=== PATIENT | female | born 1965 | race Caucasian/White ===

== ENCOUNTER → 2017-08-17 | Outpatient (CLI) | payer SELFPAY ==
[~2017-08-17] MED LIST: ALBU8.5H IH; AMPH30TA10 PO; IOPAMIDOL 76% 75 ML INFUS BTL 75 ML ONE; LOR5/325 PO
--- NOTE | 2017-08-24 10:42 | RADIOLOGY IMAGING REPORT ---
FACILITY: [facility] PATIENT NAME: Triny Olvera : 1965 MR: [id number] V: [id number] EXAM DATE: ORDERING PHYSICIAN: DAVID CABEZAS TECHNOLOGIST: Location: [facility] Patient: Triny Olvera : 1965 Visit/Account:[id number] Date of Sevice: 08/17/2017 CHEST W CONTRAST History: Follow-up pulmonary nodule on outside CT TECHNIQUE: Contiguous axial images were performed through the chest to the level of the adrenal gla nds following the administration of IV contrast. Coronal and sagittal reformatting was also perform ed. Dose Lowering Technique One of the following dose optimization techniques was utilized in the performance of this exam: Autom ated exposure control; adjustment of the mA and/or kV according to the patient's size; or use of an i terative reconstruction technique. Specific details can be referenced in the facility's radiology C T exam operational policy. Contrast: 75 mL Isovue-370 COMPARISON STUDIES: May 26, 2017. Lungs / Pleura: There is biapical pleural thickening and adjacent fibrotic stranding that appears s imilar to the prior study Previous dense airspace consolidation in the anterior lingula has almost completely resolved. There is only a subtle groundglass opacity in this location which likely represents area of scarring. The small patchy area of airspace consolidation in the anterior inferior right upper lobe has also almost completely resolved with only a subtle groundglass opacity now seen in location also likely scarring . There is no evidence of new pulmonary consolidation or nodules. No evidence of pleural effusions. Mediastinum/nodes: negative. Heart and vessels: negative. Musculoskeletal / Body wall: Moderate spondylotic changes in the visualized portion of the lower ce rvical spine there are bilateral breast implants in place Upper abdomen: There is thickening of both adrenal glands and a 2 x 1.8 cm hypoattenuating mass in the left adrenal gland IMPRESSION: Previous dense airspace consolidation in the anterior lingula and small patchy area of airspace conso lidation anterior inferior right upper lobe have almost completely resolved. Only subtle groundglass opacities are now seen in these locations which likely represent scarring. No evidence of new pulmo nary consolidation or nodules 2 x 1.8 cm hypoattenuating mass in the left adrenal gland. This could be further evaluated with dedi cated CT or MR of the adrenal glands. Report Dictated By: Rocio Zuniga MD at 08/24/2017 10:27 AM Report E-Signed By: Rocio Zuniga MD at 08/24/2017 10:38 AM WSN:[id number]
== END ==
LOC: CT 00:25
PROVIDERS: ATTEND Nurse Practitioner Family
DX: D35.00 Benign neoplasm of unspecified adrenal gland (principal); R91.8 Other nonspecific abnormal finding of lung field
CPT/HCPCS: 71260; Q9967

== ENCOUNTER → 2017-09-06 | Outpatient (CLI) | payer SELFPAY ==
[~2017-09-06] MED LIST changes: -IOPAMIDOL 76% 75 ML INFUS BTL 75 ML ONE
--- NOTE | 2017-09-06 13:11 | RADIOLOGY IMAGING REPORT ---
FACILITY: [facility] PATIENT NAME: Triny Olvera : 1965 MR: [id number] V: [id number] EXAM DATE: ORDERING PHYSICIAN: DAVID CABEZAS TECHNOLOGIST: Location: [facility] Patient: Triny Olvera : 1965 Visit/Account:[id number] Date of Sevice: 09/06/2017 EXAMINATION: MRI abdomen without IV contrast 09/06/2017 9:00 AM HISTORY: Left adrenal mass found on prior CT TECHNIQUE: Multisequence multiplanar images were obtained without intravenous contrast administration . COMPARISON STUDIES: CT chest 08/17/2017 FINDINGS: Liver / biliary: Gallstones in the gallbladder. Liver is negative. Pancreas: negative Spleen: negative Adrenal glands: 1.6 cm left adrenal nodule has clear loss of signal on out of phase imaging consisten t with a fat-containing adrenal adenoma. Right is negative. Kidneys / retroperitoneum: negative Bowel / peritoneum / mesenteries: negative Vessels: negative Musculoskeletal / Body wall: Partially imaged breast implants. Lymph node assessment: negative Lower chest: negative IMPRESSION: 1. 1.6 cm left adrenal nodule has signal features consistent with a benign adenoma. 2. Cholecystolithiasis. Report Dictated By: Andrew Marti MD at 09/06/2017 12:58 PM Report E-Signed By: Andrew Marti MD at 09/06/2017 1:06 PM WSN:[id number]
== END ==
LOC: MRI 01:37
PROVIDERS: ATTEND Nurse Practitioner Family
DX: K80.20 Calculus of gallbladder without cholecystitis without obstruction (principal); E27.8 Other specified disorders of adrenal gland; Z98.82 Breast implant status
CPT/HCPCS: 74181

== ENCOUNTER 2018-01-12 17:16 | Emergency (ER) | payer SELFPAY ==
[2018-01-12] MEDS ORDERED: NS(*) 0.9% 1000 ML BAG 1,000 ML IV ONE (17:30)
[2018-01-12] MEDS ORDERED: ASPIRIN 81 MG CHEW PO ONE (17:30)
--- NOTE | 2018-01-12 17:34 | EKG ---
FACILITY: [facility] [place] PATIENT NAME: COURT DOUGLASS : [id number] MR: [id number] V: [id number] EXAM DATE: ORDERING PHYSICIAN: JOSE MULLEN TECHNOLOGIST: CORNELL Test Reason : CP Blood Pressure : / mmHG Vent. Rate : 075 BPM Atrial Rate : 075 BPM P-R Int : 112 ms QRS Dur : 066 ms QT Int : 444 ms P-R-T Axes : 073 091 081 degrees QTc Int : 495 ms Normal sinus rhythm Rightward axis Prolonged QT Abnormal ECG When compared with ECG of 14-JAN-2017 16:20, No significant change was found Confirmed by Alfredo Pretty ([id number]) on 01/12/2018 11:01:13 PM Referred By: ABHISHEK Confirmed By:Alfredo Arredondo
[2018-01-12 17:45] LABS: PLATELET COUNT, AUTOMATED 226 K/uL (150-450)
--- NOTE | 2018-01-12 17:45 | ER Report ---
History and Physical Time Seen By MD: 17:45 Hx. of Stated Complaint: PATIENT REPORTS LEFT SIDED CHEST PAIN THAT STARTED 2 WEEKS AGO HPI/ROS CHIEF COMPLAINT: Chest pain HISTORY OF PRESENT ILLNESS: This is a 52-year-old female who presents to the emergency department for left anterior chest pain. Patient states that over the last couple weeks she's had increased left-sided chest pain. Now it seems to be very sharp and intense, movement does seem to increase discomfort. The pain does not radiate to her back it does however radiate up to her left chest. The chest pain does cause increased shortness of breath during its cute and intense episodes. She has been nausea no vomiting. No diarrhea. No recent injuries. No fevers or chills. No rashes. She does have a history of smoking. REVIEW OF SYSTEMS: Constitutional: No fever, no chills. Eyes: No discharge. ENT: No sore throat. Cardiovascular: As above. Respiratory: As above. Gastrointestinal: No abdominal pain, no vomiting. Genitourinary: No hematuria. Musculoskeletal: No back pain. Skin: No rashes. Neurological: No headache. Allergies: Coded Allergies: No Known Drug Allergies (Unverified , 01/14/17) Home Meds Active Scripts Ondansetron Hcl (ZOFRAN) 4 Mg Tablet, 4 MG PO Q4-6H PRN for prn, #20 TAB 0 Refills Prov:JOSE MULLEN [facility] 01/12/18 Hydrocodone Bit/Acetaminophen (HYDROCODON-ACETAMINOPHEN 5-325) 1 Each Tablet, 1 EACH PO Q4-6H PRN for PAIN, #10 TAB 0 Refills Prov:JOSE MULLEN [facility] 01/12/18 Doxycycline Hyclate (DOXYCYCLINE HYCLATE) 100 Mg Tablet, 100 MG PO BID for 10 Days, #20 TAB 0 Refills Prov:JOSE MULLEN [facility] 01/12/18 Amoxicillin/Pot Clav 875-125 Mg Tab (AUGMENTIN 875-125 TABLET) 1 Each Tablet, 1 TAB PO Q12H for 10 Days, #20 TAB 0 Refills Prov:JOSE MULLEN [facility] 01/12/18 Hydrocodone Bit/Acetaminophen (HYDROCODON-ACETAMINOPHEN 5-325) 1 Each Tablet, 1 EACH PO Q4H PRN for PAIN, #8 TAB 0 Refills Prov:MINGO NESS MD 02/02/17 Albuterol Sulfate 90 Mcg/Act (PROAIR HFA 90 MCG/ACT) 8.5 Gm Hfa.aer.ad, 1-2 PUFF IH Q4-6H, #1 INHALER Prov:ISAMARMARIJA Silva PA-C 01/14/17 Reported Medications Amphet Asp/Amphet/D-Amphet (ADDERALL 30 MG TABLET) 30 Mg Tablet, 30 MG PO BID 01/14/17 Past Medical/Surgical History The patient has a past medical and surgical history of "dark spot on her lungs, increased shortness breath with walking, ADHD, appendectomy, hysterectomy, breast augmentation. Reviewed Nurses Notes: Yes Constitutional Vital Sign - Last 24 Hours 01/12/18 01/12/18 01/12/18 01/12/18 17:21 17:23 18:16 18:46 Temp 98.6 Pulse 75 63 64 Resp 20 14 12 B/P (MAP) 117/69 (85) 117/69 Pulse Ox 95 96 95 O2 Delivery Room Air 01/12/18 01/12/18 01/12/18 01/12/18 18:51 19:21 19:51 20:21 Pulse ??? 63 62 63 Resp 15 16 27 Pulse Ox 93 93 95 01/12/18 20:33 B/P (MAP) 115/93 (100) Physical Exam General Appearance: The patient is alert, has no immediate need for airway protection and no signs of toxicity. Eyes: Pupils equal and round no pallor or injection. ENT, Mouth: Mucous membranes are moist. Respiratory: There are no retractions, lungs are clear to auscultation. Cardiovascular: Regular rate and rhythm. Gastrointestinal: Abdomen is soft and non tender, no masses, bowel sounds normal. Neurological: Alert and oriented 4. Moving all extremities. Following all commands. No focal neuro deficits. Skin: Warm and dry, no rashes. Musculoskeletal: Neck is supple non tender. Extremities left anterior lower chest painful with palpation, no crepitus or obvious deformities. No bruising identified. DIFFERENTIAL DIAGNOSIS: After history and physical exam differential diagnosis was considered for chest pain including but not limited to myocardial ischemia, pericarditis pulmonary embolus, chest wall pain, pleural inflammation and pulmonary infectious causes. Medical Decision Making Data Points Result Diagram: 01/12/18 1736 01/12/18 1736 Laboratory Hematology Test 01/12/18 17:36 Red Blood Count 4.96 M/uL (4.17-5.56) Mean Corpuscular Volume 87.1 fL (80.0-96.0) Mean Corpuscular Hemoglobin 29.8 pg (26.0-33.0) Mean Corpuscular Hemoglobin Concent 34.2 g/dL (32.0-36.0) Red Cell Distribution Width 13.9 % (11.5-14.5) Mean Platelet Volume 8.0 fL (7.2-11.1) Neutrophils (%) (Auto) 79.7 % (39.4-72.5) Lymphocytes (%) (Auto) 10.5 % (17.6-49.6) Monocytes (%) (Auto) 6.8 % (4.1-12.4) Eosinophils (%) (Auto) 0.3 % (0.4-6.7) Basophils (%) (Auto) 2.7 % (0.3-1.4) Nucleated RBC Relative Count (auto) 0.1 /100WBC Neutrophils # (Auto) 5.2 K/uL (2.0-7.4) Lymphocytes # (Auto) 0.7 K/uL (1.3-3.6) Monocytes # (Auto) 0.4 K/uL (0.3-1.0) Eosinophils # (Auto) 0.0 K/uL (0.0-0.5) Basophils # (Auto) 0.2 K/uL (0.0-0.1) Nucleated RBC Absolute Count (auto) 0.00 K/uL D-Dimer Quantitative (PE/DVT) 1.26 ug/ml (0-0.50) Sodium Level 137 mmol/L (137-145) Potassium Level 3.7 mmol/L (3.5-5.0) Chloride Level 106 mmol/L (98-107) Carbon Dioxide Level 24 mmol/L (22-31) Blood Urea Nitrogen 18 mg/dl (7-18) Creatinine 0.70 mg/dl (0.52-1.04) Glomerular Filtration Rate Calc > 60.0 Random Glucose 66 mg/dl (75-110) Calcium Level 8.4 mg/dl (8.4-10.2) Total Bilirubin 0.7 mg/dl (0.2-1.3) Aspartate Amino Transf (AST/SGOT) 60 U/L (0-35) Alanine Aminotransferase (ALT/SGPT) 52 U/L (0-56) Alkaline Phosphatase 90 U/L (0-126) Troponin I < 0.012 ng/ml Total Protein 6.6 g/dl (6.3-8.2) Albumin 3.6 g/dl (3.5-5.0) Chemistry Test 01/12/18 17:36 White Blood Count 6.5 k/uL (4.5-11.0) Red Blood Count 4.96 M/uL (4.17-5.56) Hemoglobin 14.8 g/dL (12.0-16.0) Hematocrit 43.2 % (34.0-47.0) Mean Corpuscular Volume 87.1 fL (80.0-96.0) Mean Corpuscular Hemoglobin 29.8 pg (26.0-33.0) Mean Corpuscular Hemoglobin Concent 34.2 g/dL (32.0-36.0) Red Cell Distribution Width 13.9 % (11.5-14.5) Platelet Count 226 K/uL (150-450) Mean Platelet Volume 8.0 fL (7.2-11.1) Neutrophils (%) (Auto) 79.7 % (39.4-72.5) Lymphocytes (%) (Auto) 10.5 % (17.6-49.6) Monocytes (%) (Auto) 6.8 % (4.1-12.4) Eosinophils (%) (Auto) 0.3 % (0.4-6.7) Basophils (%) (Auto) 2.7 % (0.3-1.4) Nucleated RBC Relative Count (auto) 0.1 /100WBC Neutrophils # (Auto) 5.2 K/uL (2.0-7.4) Lymphocytes # (Auto) 0.7 K/uL (1.3-3.6) Monocytes # (Auto) 0.4 K/uL (0.3-1.0) Eosinophils # (Auto) 0.0 K/uL (0.0-0.5) Basophils # (Auto) 0.2 K/uL (0.0-0.1) Nucleated RBC Absolute Count (auto) 0.00 K/uL D-Dimer Quantitative (PE/DVT) 1.26 ug/ml (0-0.50) Glomerular Filtration Rate Calc > 60.0 Calcium Level 8.4 mg/dl (8.4-10.2) Total Bilirubin 0.7 mg/dl (0.2-1.3) Aspartate Amino Transf (AST/SGOT) 60 U/L (0-35) Alanine Aminotransferase (ALT/SGPT) 52 U/L (0-56) Alkaline Phosphatase 90 U/L (0-126) Troponin I < 0.012 ng/ml Total Protein 6.6 g/dl (6.3-8.2) Albumin 3.6 g/dl (3.5-5.0) Coagulation Test 01/12/18 17:36 D-Dimer Quantitative (PE/DVT) 1.26 ug/ml EKG/Imaging EKG Interpretation 12 lead EKG: Time of EKG 1726. Rhythm: Normal sinus rhythm, ventricular rate 75 bpm. Hope: Right axis QRS: normal ST segments: No ST depression or elevation identified. Prolonged QT. Imaging Examination: CHEST PA AND LAT Comparison: 08/17/2017. History: Chest pain. Findings: Pulmonary hyperexpansion. No new or enlarging consolidation or nodule. No pneumothorax, edema, or effusion. Cardiac and hilar contour size is within normal limits. Osseous structures are intact. IMPRESSION: Chronic pulmonary hyperexpansion. No evidence of acute cardiopulmonary disease. Report Dictated By: Paulo Argueta MD at 01/12/2018 6:07 PM Report E-Signed By: Paulo Argueta MD at 01/12/2018 6:09 PM WSN:[id number] CTA CHEST WW/O CNTR (PULM ANG) HISTORY: Chest pain, elevated D-dimer. ADDITIONAL HISTORY: None. TECHNIQUE: CTA chest with intravenous contrast attention to pulmonary arteries. Sagittal, coronal and slab 3D MIP coronal reconstructed images were also created for further evaluation and interpretation. One of the following dose optimization techniques was utilized in the performance of this exam: Automated exposure control; adjustment of the mA and/or kV according to the patient's size; or use of an iterative reconstruction technique. Specific details can be referenced in the facility's radiology CT exam operational policy. CONTRAST: 75 mL Isovue-370 IV COMPARISON: 08/17/2017 FINDINGS: Heart/vessels: Pulmonary arterial tree well opacified. No evidence of pulmonary embolism. Mediastinum: Negative. Lymph nodes: No adenopathy. Lungs/pleura: Mild and benign-appearing biapical pleural parenchymal pulmonary scarring. New from prior exam, peribronchial tree-in-bud type infiltrate basilar segments left lower lobe with central consolidation or atelectasis and several s mall foci of luminal debris. Stable noncalcified 3 mm nodule central right apex (). Visualized upper abdomen: Too small to characterize low attenuating lateral segment left hepatic lesion, likely cyst. Diverticula visualized splenic flexure colon. Bones/soft tissues: Bilateral breast implants. Minimal disc degenerative changes thoracic spine. IMPRESSION: 1. Technically adequate exam without evidence of pulmonary embolism. 2. New peribronchial tree-in-bud type infiltrate basilar segments left lower lobe with central consolidation or atelectasis and several small foci of luminal debris. Findings are most concerning for aspiration/pneumonia, however, given the irregular nature of this consolidation, 3-month chest CT follow-up is recommended to reassess. 3. Stable 3 mm noncalcified right apical pulmonary nodule. If patient has a history of smoking or other known risk factors, 6-[address] follow-up is considered optional according to [employer] guidelines. Report Dictated By: Tim Mckeon MD at 01/12/2018 7:18 PM Report E-Signed By: Tim Mckeon MD at 01/12/2018 7:28 PM WSN:[id number] ED Course/Re-evaluation Clinical Indication for ER IV: Hydration, IV Access ED Course The patient was admitted to room. A history and physical were obtained. Differential diagnoses were considered. An IV was started. A CBC, CMP were obtained.two-view chest x-ray was negative for any acute cardiopulmonary pro cess. Negative troponin. Lab studies showing no white count, there is a mild left shift, positive d-dimer at 1.26. A CT of the chest was negative for PE however it does show an aspiration pneumonia. I did review the results with the patient. The patient states that she does remember having a severe coughing episode couple of weeks ago where she felt that she did swallow something into her lungs. As this is likely an aspiration pneumonia, I did start patient on Augmentin as well as doxycycline. I did recommend that the patient follows up with her primary care provider within one week for reevaluation. Patient was given a 1 L normal saline bolus. 324 mg of aspirin, 4 mg IV Zofran, 4 mg IV morp lizeth, 50 mg IV Toradol, 1 by mouth Lortab, one take-home pack of Lortab. Patient states feeling much better at the time of discharge. I did send the prescriptions to the patient's pharmacy, I did send a prescription for hydrocodone as well as Zofran. EKG showing normal sinus rhythm. Decision to Disposition Date: Jan 12, 2018 Decision to Disposition Time: 20:25 Depart Departure Latest Vital Signs Vital Signs Date Time Temp Pulse Resp B/P (MAP) Pulse Ox O2 Delivery O2 Flow Rate FiO2 01/12/18 20:33 115/93 (100) 01/12/18 20:21 63 27 95 01/12/18 17:23 98.6 Room Air Impression: Primary Impression: Aspiration pneumonia Condition: Improved Disposition: HOME OR SELF-CARE New Scripts Ondansetron Hcl (ZOFRAN) 4 Mg Tablet 4 MG PO Q4-6H PRN for prn, #20 TAB 0 Refills Prov: JOSE MULLEN [facility] 01/12/18 Hydrocodone Bit/Acetaminophen (HYDROCODON-ACETAMINOPHEN 5-325) 1 Each Tablet 1 EACH PO Q4-6H PRN for PAIN, #10 TAB 0 Refills Prov: JOSE MULLEN [facility] 01/12/18 Doxycycline Hyclate (DOXYCYCLINE HYCLATE) 100 Mg Tablet 100 MG PO BID for 10 Days, #20 TAB 0 Refills Prov: JOSE MULLEN [facility] 01/12/18 Amoxicillin/Pot Clav 875-125 Mg Tab (AUGMENTIN 875-125 TABLET) 1 Each Tablet 1 TAB PO Q12H for 10 Days, #20 TAB 0 Refills Prov: JOSE MULLEN [facility] 01/12/18 Patient Instructions: Aspiration Pneumonia (DC) Additional Instructions: The CT of the chest does indicate that you have an aspiration pneumonia. Your studies look good tonight therefore I don't see any reason why we wouldn't be able to send him home however I am going to send her home on 2 different antibiotics. You can take ibuprofen or Tylenol as needed for pain. Take the hydrocodone for severe pain, no driving or operating machinery while taking the hydrocodone. Due be aware that this can cause constipation as well so increase her dietary fiber and water intake. Take the Zofran as needed for nausea and vomiting. Get plenty of rest. Return to the emergency department for any other concerns or worsening symptoms. Follow-up with your primary care provider within one week for reevaluation of your symptoms. Problem Qualifiers Primary Impression: Aspiration pneumonia Aspiration pneumonia type: unspecified Laterality: left Lung location: lower lobe of lung Qualified Codes: J69.0 - Pneumonitis due to inhalation of food and vomit JOSE MULLEN [facility] Jan 12, 2018 17:45
--- NOTE | 2018-01-12 18:12 | RADIOLOGY IMAGING REPORT ---
FACILITY: [facility] [place] PATIENT NAME: Triny Olvera : 1965 MR: [id number] V: [id number] EXAM DATE: ORDERING PHYSICIAN: JOSE MULLEN TECHNOLOGIST: Location: [facility] [place] Patient: Triny Olvera : 1965 Visit/Account:[id number] Date of Sevice: 01/12/2018 Examination: CHEST PA AND LAT Comparison: 08/17/2017. History: Chest pain. Findings: Pulmonary hyperexpansion. No new or enlarging consolidation or nodule. No pneumothorax, casimiro ma, or effusion. Cardiac and hilar contour size is within normal limits. Osseous structures are intac t. IMPRESSION: Chronic pulmonary hyperexpansion. No evidence of acute cardiopulmonary disease. Report Dictated By: Paulo Argueta MD at 01/12/2018 6:07 PM Report E-Signed By: Paulo Argueta MD at 01/12/2018 6:09 PM WSN:[id number]
[2018-01-12] MEDS ORDERED: MORPHINE 4 MG/ML SDV IVP ONE (18:35)
[2018-01-12] MEDS ORDERED: ONDANSETRON 4 MG/2 ML VIAL IVP ONE (18:35)
[2018-01-12] MEDS ORDERED: NS(*) 0.9% 50 ML BAG 50 ML ONE (18:47)
[2018-01-12] MEDS ORDERED: IOPAMIDOL 76% 75 ML INFUS BTL 75 ML ONE (18:47)
--- NOTE | 2018-01-12 19:32 | RADIOLOGY IMAGING REPORT ---
FACILITY: [facility] [place] PATIENT NAME: Triny Olvera : 1965 MR: [id number] V: [id number] EXAM DATE: ORDERING PHYSICIAN: JOSE MULLEN TECHNOLOGIST: Location: [facility] [place] Patient: Triny Olvera : 1965 Visit/Account:[id number] Date of Sevice: 01/12/2018 CTA CHEST WW/O CNTR (PULM ANG) HISTORY: Chest pain, elevated D-dimer. ADDITIONAL HISTORY: None. TECHNIQUE: CTA chest with intravenous contrast attention to pulmonary arteries. Sagittal, coronal a nd slab 3D MIP coronal reconstructed images were also created for further evaluation and interpretati on. One of the following dose optimization techniques was utilized in the performance of this exam: Autom ated exposure control; adjustment of the mA and/or kV according to the patient's size; or use of an i terative reconstruction technique. Specific details can be referenced in the facility's radiology C T exam operational policy. CONTRAST: 75 mL Isovue-370 IV COMPARISON: 08/17/2017 FINDINGS: Heart/vessels: Pulmonary arterial tree well opacified. No evidence of pulmonary embolism. Mediastinum: Negative. Lymph nodes: No adenopathy. Lungs/pleura: Mild and benign-appearing biapical pleural parenchymal pulmonary scarring. New from pr ior exam, peribronchial tree-in-bud type infiltrate basilar segments left lower lobe with central con solidation or atelectasis and several small foci of luminal debris. Stable noncalcified 3 mm nodule c entral right apex (). Visualized upper abdomen: Too small to characterize low attenuating lateral segment left hepatic les ion, likely cyst. Diverticula visualized splenic flexure colon. Bones/soft tissues: Bilateral breast implants. Minimal disc degenerative changes thoracic spine. IMPRESSION: 1. Technically adequate exam without evidence of pulmonary embolism. 2. New peribronchial tree-in-bud type infiltrate basilar segments left lower lobe with central consol idation or atelectasis and several small foci of luminal debris. Findings are most concerning for asp iration/pneumonia, however, given the irregular nature of this consolidation, 3-month chest CT follow -up is recommended to reassess. 3. Stable 3 mm noncalcified right apical pulmonary nodule. If patient has a history of smoking or oth er known risk factors, 6-[address] follow-up is considered optional according to [employer] guidelines. Report Dictated By: Tim Mckeon MD at 01/12/2018 7:18 PM Report E-Signed By: Tim Mckeon MD at 01/12/2018 7:28 PM WSN:[id number]
[2018-01-12] MEDS ORDERED: AMOX-559 PO (20:23)
[2018-01-12] MEDS ORDERED: ONDA4TAB97 PO (20:23)
[2018-01-12] MEDS ORDERED: HYDR-385 PO (20:23)
[2018-01-12] MEDS ORDERED: DOXY-179 PO (20:23)
[2018-01-12] MEDS ORDERED: APAP/HYDROCODONE 325/5 TAB PO ONE (20:30)
[2018-01-12] MEDS ORDERED: KETOROLAC 15 MG/ML VIAL IVP ONE (20:30)
[2018-01-12 20:33] VITALS: BP 115/93
[2018-01-12] MEDS ORDERED: ACET/HYDROC 5/325MG TH ER ONLY 2 TAB/BOTTLE PO ONE (20:50)
== END 2018-01-12 20:49 | disposition home or self-care (01) ==
LOC: ER 17:34
DX: J69.0 Pneumonitis due to inhalation of food and vomit (principal); Z87.891 Personal history of nicotine dependence
CPT/HCPCS: 71046; 71275; 84484; 85025; 85379; 93005; 96361; 96374; 96375; 99285; J1885; J2270; J2405; J7030; J7050; Q9967; 82040; 82247; 82310; 82374; 82435; 82565; 82947; 84075; 84132; 84155; 84295; 84450; 84460; 84520

== ENCOUNTER 2018-05-22 19:01 | Emergency (ER) | payer SELFPAY ==
[~2018-05-22 19:01] MED LIST changes: +AMOX-559 PO; +DOXY-179 PO; +HYDR-385 PO; +ONDA4TAB97 PO
[2018-05-22 19:26] VITALS: BP 156/80
--- NOTE | 2018-05-22 19:51 | ER Report ---
History and Physical Time Seen By MD: 19:38 Hx. of Stated Complaint: PATIENT REPORTS NECK PAIN AND STATES SHE "FEELS LIKE HER SPINE IS TWISTING TO THE LEFT" REPORTS FALLING DOWN STAIRS A YEAR AGO AND NECK HAS BOTHERING HER SINCE. HPI/ROS CHIEF COMPLAINT: Neck pain HISTORY OF PRESENT ILLNESS: 53 year old female presents to ED with severe neck pain. Patient reports pain is located at base of skull that runs down her spine to her sacrum, and pain radiates to her right hip and jaw. Reports pain does not run down into her legs. Reports pain feels as if her spine is "twisting" and will periodically cause her jaw to lock and prevent her from taking a deep breath. She can feel the "twisting" all the way down her spine. Reports the "twisting" sensation occurs multiple times a minute. Reports pain is sharp, constant, and 10 out of 10. Patient has tried tylenol, ibuprofen, and advil all of which have not touched her pain. Patient reports she had a fall 1 year ago in which the pain started. Patient reports she fell down 5-10 stairs and fell backwards hitting her spine on the steps. Patient never followed up after the fall. Patient's pain was mild initially after the fall and has progressively gotten worse as time has gone on. Patient reports pain has significantly increased the past two weeks. REVIEW OF SYSTEMS: HENT: Denies headache. Reports jaw pain and tightness that occurs periodically. Respiratory: No cough, no dyspnea. Cardiovascular: No chest pain, no palpitations. Gastrointestinal: No vomiting, no abdominal pain. Musculoskeletal: Reports cervical pain that runs down her spine and radiates to her right hip and jaw. Allergies: Coded Allergies: No Known Drug Allergies (Unverified , 05/22/18) Home Meds Active Scripts Oxycodone Hcl/Acetaminophen (PERCOCET 5-325 MG TABLET) 1 Each Tablet, 1 EACH PO Q4-6H PRN for PAIN, #12 TAB Prov:DASH GUAJARDO [facility] 05/22/18 Cyclobenzaprine Hcl (CYCLOBENZAPRINE HCL) 10 Mg Tablet, 10 MG PO TID PRN for MUSCLE SPASMS, #15 TAB Prov:DASH GUAJARDO [facility] 05/22/18 Discontinued Reported Medications Amphet Asp/Amphet/D-Amphet (ADDERALL 30 MG TABLET) 30 Mg Tablet, 30 MG PO BID 01/14/17 Discontinued Scripts Ondansetron Hcl (ZOFRAN) 4 Mg Tablet, 4 MG PO Q4-6H PRN for prn, #20 TAB 0 Refills Prov:JOSE MULLEN [facility] 01/12/18 Hydrocodone Bit/Acetaminophen (HYDROCODON-ACETAMINOPHEN 5-325) 1 Each Tablet, 1 EACH PO Q4-6H PRN for PAIN, #10 TAB 0 Refills Prov:JOSE MULLEN [facility] 01/12/18 Doxycycline Hyclate (DOXYCYCLINE HYCLATE) 100 Mg Tablet, 100 MG PO BID for 10 Days, #20 TAB 0 Refills Prov:JOSE MULLEN [facility] 01/12/18 Amoxicillin/Pot Clav 875-125 Mg Tab (AUGMENTIN 875-125 TABLET) 1 Each Tablet, 1 TAB PO Q12H for 10 Days, #20 TAB 0 Refills Prov:JOSE MULLEN [facility] 01/12/18 Hydrocodone Bit/Acetaminophen (HYDROCODON-ACETAMINOPHEN 5-325) 1 Each Tablet, 1 EACH PO Q4H PRN for PAIN, #8 TAB 0 Refills Prov:MINGO NESS MD 02/02/17 Albuterol Sulfate 90 Mcg/Act (PROAIR HFA 90 MCG/ACT) 8.5 Gm Hfa.aer.ad, 1-2 PUFF IH Q4-6H, #1 INHALER Prov:MARIJA PENN PA-C 01/14/17 Past Medical/Surgical History Past medical history significant for ADHD. Past surgical history significant for partial hysterectomy, breast augmentation, and appendectomy. Constitutional Vital Sign - Last 24 Hours 05/22/18 19:26 Temp 98.1 Pulse 85 Resp 15 B/P (MAP) 156/80 Pulse Ox 91 O2 Delivery Room Air Physical Exam General Appearance: The patient is alert, has no immediate need for airway protection and no current signs of toxicity. Eyes: Pupils equal and round no injection. Respiratory: Chest is non tender, lungs are clear to auscultation. Cardiac: regular rate and rhythm Gastrointestinal: Abdomen is soft and non tender, no masses, bowel sounds normal. Musculoskeletal: Cervical spine tender to palpation. Observed diffuse muscle tightening throughout neck, jaw, and trunk. Skin: No rashes or lesions. DIFFERENTIAL DIAGNOSIS: After history and physical exam differential diagnosis was considered for muscle spasm, spinal injury, cervical injury, brain contusion. Medical Decision Making EKG/Imaging Imaging Head CT: IMPRESSION: No CT evidence of acute intracranial pathology. Cervcial spine CT: IMPRESSION: 1. No acute osseous findings along the cervical spine. 2. Stable chronic spondylotic changes at the C4-C5 through C6-C7 interspaces. Lumbar spine CT: IMPRESSION: Negative lumbar spine CT. No acute osseous findings. Thoracic spine CT: IMPRESSION: Negative thoracic spine CT. ED Course/Re-evaluation ED Course Patient admitted to an exam room, history and physical obtained, differentials considered. Patient presents with cervical pain located at base of skull that runs down her spine to her sacrum. Pain radiates to her right hip and jaw. Reports pain feels as if her spine is "twisting" and will periodically cause her jaw to lock and prevent her from taking a deep breath. Reports the feeling of "twisting" all the way down her spine. Reports the "twisting" sensation occurs multiple times a minute. Reports pain is sharp, constant, and 10 out of 10. Patient has tried tylenol, ibuprofen, and advil all of which have not touched her pain. Patient reports she had a fall 1 year ago in which the pain started. Reports she fell down 5-10 stairs and fell backwards hitting her spine on the steps. Patient never followed up after the fall. Patient's pain was mild initially after the fall and has progressively gotten worse as time has gone on. Patient reports pain has significantly increased the past two weeks. On exam cervical spine tender to palpation. Observed diffuse muscle tightening throughout neck, jaw, and trunk. CT of head, cervical spine, lumbar spine, and thoracic spine were collected showing no signs of pathology. Patients pain is likely from muscle spasms. Flexeril and lortab given in the ED for pain. Patient reports no improvement in her pain. Will send patient home with percocet and flexeril and patient is to follow-up with her primary care provider by the end of the week. Decision to Disposition Date: May 22, 2018 Decision to Disposition Time: 21:46 Depart Departure Latest Vital Signs Vital Signs Date Time Temp Pulse Resp B/P (MAP) Pulse Ox O2 Delivery O2 Flow Rate FiO2 05/22/18 19:26 98.1 85 15 156/80 91 Room Air Impression: Primary Impression: Muscle spasm Condition: Improved Disposition: HOME OR SELF-CARE New Scripts Oxycodone Hcl/Acetaminophen (PERCOCET 5-325 MG TABLET) 1 Each Tablet 1 EACH PO Q4-6H PRN for PAIN, #12 TAB Prov: DASH GUAJARDO 05/22/18 Cyclobenzaprine Hcl (CYCLOBENZAPRINE HCL) 10 Mg Tablet 10 MG PO TID PRN for MUSCLE SPASMS, #15 TAB Prov: DASH GUAJARDO 05/22/18 Patient Instructions: Muscle Spasm (ED) Additional Instructions: Limit activity by pain. Follow up with your primary care provider in the next 2-3 days. Get plenty of rest. I anticipate that she will refer you to Physical Therapy for further evaluation of your muscle spasms. Return to the ER if condition worsens. Take the medication as prescribed. DASH GUAJARDO May 22, 2018 19:51
[2018-05-22] MEDS ORDERED: APAP/HYDROCODONE 325/5 TAB PO ONE (20:00)
[2018-05-22] MEDS ORDERED: CYCLOBENZAPRINE HCL 10 MG TAB PO ONE (20:00)
--- NOTE | 2018-05-22 21:27 | RADIOLOGY IMAGING REPORT ---
FACILITY: [facility] PATIENT NAME: Triny Olvera : 1965 MR: [id number] V: [id number] EXAM DATE: ORDERING PHYSICIAN: DASH GUAJARDO TECHNOLOGIST: Location: [facility] Patient: Triny Olvera : 1965 Visit/Account:[id number] Date of Sevice: 05/22/2018 EXAMINATION: CT head without IV contrast HISTORY: Fall with spasm. TECHNIQUE: Axial CT images of the head were obtained from the vertex to the skull base without IV c ontrast, with coronal and sagittal 2D reconstructed images. One of the following dose optimization techniques was utilized in the performance of this exam: Autom ated exposure control; adjustment of the mA and/or kV according to the patient's size; or use of an i terative reconstruction technique. Specific details can be referenced in the facility's radiology C T exam operational policy. COMPARISON: None. FINDINGS: No CT evidence of intracranial hemorrhage, mass lesion, or acute infarct. No midline shift or extra- axial fluid collections. Santana-white differentiation is maintained. There is a cavum septum pellucidum et vergae, a normal ventricular variant. The calvarium is intact. The visualized paranasal sinuses and mastoid air cells are unopacified. IMPRESSION: No CT evidence of acute intracranial pathology. Report Dictated By: Jose Patton MD at 05/22/2018 9:13 PM Report E-Signed By: Jose Patton MD at 05/22/2018 9:23 PM WSN:[id number]
--- NOTE | 2018-05-22 21:29 | RADIOLOGY IMAGING REPORT ---
FACILITY: [facility] [place] PATIENT NAME: Triny Olvera : 1965 MR: [id number] V: [id number] EXAM DATE: [id number] ORDERING PHYSICIAN: DASH GUAJARDO TECHNOLOGIST: Location: [facility] [place] Patient: Triny Olvera : 1965 Visit/Account:[id number] Date of Sevice: 05/22/2018 EXAMINATION: CT cervical spine without IV contrast HISTORY: Fall with pain and spasms. TECHNIQUE: Thin axial CT images of the cervical spine were obtained without IV contrast, with sagit scarlett and coronal 2D reconstructed images. One of the following dose optimization techniques was utilized in the performance of this exam: Autom ated exposure control; adjustment of the mA and/or kV according to the patient's size; or use of an i terative reconstruction technique. Specific details can be referenced in the facility's radiology C T exam operational policy. COMPARISON: Cervical spine radiographs 01/14/2017. FINDINGS: The cervical spine is negative for acute fracture or subluxation. Chronic spondylotic changes along the mid and lower cervical spine. There is severe disc space narrow ing at the C4-C5 through C6-C7 interspaces with endplate osteophyte formation. There is stable mild c hronic appearing retrolisthesis of C4 on C5, C5 on C6, and C6 on C7. Vertebral body height is maintained. The posterior elements are intact. The dens is intact. Normal alignment at the craniocervical junction. IMPRESSION: 1. No acute osseous findings along the cervical spine. 2. Stable chronic spondylotic changes at the C4-C5 through C6-C7 interspaces. Report Dictated By: Jose Patton MD at 05/22/2018 9:23 PM Report E-Signed By: Jose Patton MD at 05/22/2018 9:26 PM WSN:[id number]
--- NOTE | 2018-05-22 21:31 | RADIOLOGY IMAGING REPORT ---
FACILITY: [facility] PATIENT NAME: Triny Olvera : 1965 MR: [id number] V: [id number] EXAM DATE: [id number] ORDERING PHYSICIAN: DASH GUAJARDO TECHNOLOGIST: Location: [facility] [place], [place] Patient: Triny Olvera : 1965 Visit/Account:[id number] Date of Sevice: 05/22/2018 EXAMINATION: CT thoracic spine without IV contrast HISTORY: Fall with pain and spasms. TECHNIQUE: Thin axial CT images of the thoracic spine were obtained without IV contrast, with sagit scarlett and coronal 2D reconstructed images. One of the following dose optimization techniques was utilized in the performance of this exam: Autom ated exposure control; adjustment of the mA and/or kV according to the patient's size; or use of an i terative reconstruction technique. Specific details can be referenced in the facility's radiology C T exam operational policy. COMPARISON: CT chest 01/12/2018. FINDINGS: The thoracic spine is negative for acute fracture or subluxation. Normal alignment. Vertebral body he ight is maintained throughout the thoracic spine. Posterior elements are intact. Paraspinal soft tissues are unremarkable by CT. The partially visualized portions of both lungs are c lear. No layering pleural effusion. IMPRESSION: Negative thoracic spine CT. Report Dictated By: Jose Patton MD at 05/22/2018 9:26 PM Report E-Signed By: Jose Patton MD at 05/22/2018 9:28 PM WSN:[id number]
--- NOTE | 2018-05-22 21:34 | RADIOLOGY IMAGING REPORT ---
FACILITY: [facility] [place] PATIENT NAME: Triny Olvera : 1965 MR: [id number] V: [id number] EXAM DATE: [id number] ORDERING PHYSICIAN: DASH GUAJARDO TECHNOLOGIST: Location: [facility] Patient: Triny Olvera : 1965 Visit/Account:[id number] Date of Sevice: 05/22/2018 EXAMINATION: CT lumbar spine without IV contrast HISTORY: Fall with pain and spasms. TECHNIQUE: Thin axial CT images of the lumbar spine were obtained without IV contrast, with sagitta l and coronal 2D reconstructed images. One of the following dose optimization techniques was utilized in the performance of this exam: Autom ated exposure control; adjustment of the mA and/or kV according to the patient's size; or use of an i terative reconstruction technique. Specific details can be referenced in the facility's radiology C T exam operational policy. COMPARISON: None. FINDINGS: There are 5 nonrib-bearing lumbar-type vertebral segments. The lumbar spine is negative for acute fracture or subluxation. Normal alignment. Vertebral body heig ht and disc spaces are preserved. Posterior elements are intact with normal alignment along the lumba r facet joints. There is a hemangioma in the L5 vertebral body. The paraspinal soft tissues are unremarkable by CT. Small bilateral nonobstructing renal calculi. IMPRESSION: Negative lumbar spine CT. No acute osseous findings. Report Dictated By: Jose Patton MD at 05/22/2018 9:28 PM Report E-Signed By: Jose Patton MD at 05/22/2018 9:31 PM WSN:[id number]
[2018-05-22] MEDS ORDERED: OXYC-865 PO (21:43)
[2018-05-22] MEDS ORDERED: CYCL10TA29 PO (21:43)
[2018-05-22] MEDS ORDERED: oxyCODONE/ACETAMIN 5/325MG TH 2 TAB/BOTTLE PO ONE (21:50)
[2018-05-22] MEDS ORDERED: CYCLOBENZAPRINE HCL 10 MG TH PO ONE (21:50)
== END 2018-05-22 21:59 | disposition home or self-care (01) ==
LOC: ER 20:08
DX: M62.838 Other muscle spasm (principal)
CPT/HCPCS: 70450; 72125; 72128; 72131; 99284

== ENCOUNTER 2018-05-26 17:09 | Emergency (ER) | payer SELFPAY ==
[~2018-05-26 17:09] MED LIST changes: +CYCL10TA29 PO; +OXYC-865 PO
--- NOTE | 2018-05-26 17:16 | ER Report ---
History and Physical Time Seen By MD: 17:16 Hx. of Stated Complaint: continued muscle spasms in neck - reports she has ran out of percocet and the flexeril does not help the pain HPI/ROS CHIEF COMPLAINT: Recurrent neck pain and muscle spasms HISTORY OF PRESENT ILLNESS: This is a 53-year-old female presents emergency department for recurrent "neck and muscle spasms and pain". The patient was evaluated in the emergency department 3 days ago, given a prescription for oxycodone and Flexeril, she states she's taken all the oxycodone and is wanting a refill on the pain medications. She states that the muscle relaxers are not doing all that much for her. She states that she had this pain that started about a year ago after a fall down some stairs, after reviewing the patient's chart I did note that she had a similar complaint with the same chronicity of time in December 2016, she stated the same thing when she was evaluated 3 days ago as well as today. She states she does have a follow-up appointment with a new primary care provider this coming Monday she was wanting pain medicine until the follow-up appointment. She denies any other complaints, no nausea or vomiting. No chest pain or shortness breath. No diarrhea. No recurrent injuries. REVIEW OF SYSTEMS: Respiratory: No cough, no dyspnea. Cardiovascular: No chest pain, no palpitations. Gastrointestinal: No vomiting, no abdominal pain. Musculoskeletal: As above. Allergies: Coded Allergies: No Known Drug Allergies (Unverified , 05/26/18) Home Meds Active Scripts Metaxalone (SKELAXIN) 800 Mg Tablet, 800 MG PO TID, #20 TAB 0 Refills Prov:JOSE MULLEN [facility] 05/26/18 Discontinued Reported Medications Amphet Asp/Amphet/D-Amphet (ADDERALL 30 MG TABLET) 30 Mg Tablet, 30 MG PO BID 01/14/17 Discontinued Scripts Oxycodone Hcl/Acetaminophen (PERCOCET 5-325 MG TABLET) 1 Each Tablet, 1 EACH PO Q4-6H PRN for PAIN, #12 TAB Prov:DASH GUAJARDO 05/22/18 Cyclobenzaprine Hcl (CYCLOBENZAPRINE HCL) 10 Mg Tablet, 10 MG PO TID PRN for MUSCLE SPASMS, #15 TAB Prov:DAHS GUAJARDOP 05/22/18 Ondansetron Hcl (ZOFRAN) 4 Mg Tablet, 4 MG PO Q4-6H PRN for prn, #20 TAB 0 Refills Prov:JOSE MULLEN [facility] 01/12/18 Hydrocodone Bit/Acetaminophen (HYDROCODON-ACETAMINOPHEN 5-325) 1 Each Tablet, 1 EACH PO Q4-6H PRN for PAIN, #10 TAB 0 Refills Prov:JOSE MULLEN [facility] 01/12/18 Doxycycline Hyclate (DOXYCYCLINE HYCLATE) 100 Mg Tablet, 100 MG PO BID for 10 Days, #20 TAB 0 Refills Prov:JOSE MULLEN [facility] 01/12/18 Amoxicillin/Pot Clav 875-125 Mg Tab (AUGMENTIN 875-125 TABLET) 1 Each Tablet, 1 TAB PO Q12H for 10 Days, #20 TAB 0 Refills Prov:JOSE MULLEN [facility] 01/12/18 Hydrocodone Bit/Acetaminophen (HYDROCODON-ACETAMINOPHEN 5-325) 1 Each Tablet, 1 EACH PO Q4H PRN for PAIN, #8 TAB 0 Refills Prov:MINGO NESS MD 02/02/17 Albuterol Sulfate 90 Mcg/Act (PROAIR HFA 90 MCG/ACT) 8.5 Gm Hfa.aer.ad, 1-2 PUFF IH Q4-6H, #1 INHALER Prov:MARIJA PENN PA-C 01/14/17 Past Medical/Surgical History The patient has a past medical and surgical history of appendectomy, hysterectomy. Reviewed Nurses Notes: Yes Constitutional Vital Sign - Last 24 Hours 05/26/18 05/26/18 17:12 18:03 Temp 98.2 Pulse 91 86 Resp 20 20 B/P (MAP) 104/87 93/70 (78) Pulse Ox 95 94 O2 Delivery Room Air Room Air Physical Exam General Appearance: The patient is alert, has no immediate need for airway protection and no current signs of toxicity, appears anxious. Eyes: Pupils equal and round no injection. Respiratory: Chest is non tender, lungs are clear to auscultation. Cardiac: regular rate and rhythm. Gastrointestinal: Abdomen is soft and non tender, no masses, bowel sounds normal. Musculoskeletal: Neck: Right sided neck along the sternocleidomastoid, firm with palpation, however this is similar to the left, there is a slight increased firmness to the right. No crepitus or deformities identified. Extremities have full range of motion and are non tender. Skin: No rashes or lesions. DIFFERENTIAL DIAGNOSIS: After history and physical exam differential diagnosis was considered for cervical strain, radiculopathy, spasmodic torticollis. Medical Decision Making ED Course/Re-evaluation ED Course The patient was admitted to room. A history and physical were obtained. Differential diagnoses were considered. After examination of the patient's, we discussed possible options, I did however explain to the patient that as this is been a chronic problem and she's had several narcotics dispensed most recently 5 days ago, I did express to her that I am unable to refill the narcotics at this time, I did offer her trigger point injections as noted below, she declined, I did give her an injection of Norflex, patient states this did not provide much relief. I did tell her that we can try another Merocel relaxer, she said she would try this, I did send a prescription for Skelaxin to her pharmacy. Patient will follow-up with her new PCP this week as scheduled, I also recommended following up with Dr. Nina if she has continued discomfort of her cervical spine. Patient expressed understanding and was discharged home. 05/26/2018 5:36:03 pm I did review the [place] [employer] although the patient has only had 3 narcotic prescriptions filled on the [employer]GAL [employer] database since December I am concerned about her safety, therefore I did tell her that I am unable to re- prescribe narcotic pain medications. I did offer her a trigger point with steroid injection, I also offered to try a Medrol or steroid systemically that would potentially help with the inflammation and discomfort, she did decline these. She states she is nervous about the shots. She did however except an injection of Norflex. We did discuss alternatives, she will try a different muscle relaxer and keep her follow-up appointment. I did tell her that she does need to follow-up with Dr. Nina at [facility] as well as she is complaining of her neck. Decision to Disposition Date: May 26, 2018 Decision to Disposition Time: 17:33 Depart Departure Latest Vital Signs Vital Signs Date Time Temp Pulse Resp B/P (MAP) Pulse Ox O2 Delivery O2 Flow Rate FiO2 3/30/19 18:03 86 20 93/70 (78) 94 Room Air 05/26/18 17:12 98.2 Impression: Primary Impression: Muscle spasm Condition: Improved Disposition: HOME OR SELF-CARE Referrals: STERLING NINA MD New Scripts Metaxalone (SKELAXIN) 800 Mg Tablet 800 MG PO TID, #20 TAB 0 Refills Prov: JOSE MULLEN 05/26/18 Patient Instructions: Muscle Spasm (ED) Additional Instructions: Please try Skelaxin as this is a slightly different muscle relaxer hopefully this will help with the spasms you're having a near neck. Please be sure to keep her follow-up appointments with your new primary care provider this coming Monday. Please follow-up with Dr. Nina at [facility], I would recommend calling his office Monday and following up next Monday. Be sure to drink plenty of water. Get plenty of rest. You can also try a half pack, this may help with the muscle soreness and spasm. Return to the ER for any other concerns worsening symptoms. JOSE MULLEN-BC May 26, 2018 17:16
[2018-05-26] MEDS ORDERED: ORPHENADRINE 60MG/2ML INJ IM ONE (17:30)
[2018-05-26] MEDS ORDERED: META800T18 PO (17:34)
[2018-05-26 18:03] VITALS: BP 93/70
== END 2018-05-26 18:03 | disposition home or self-care (01) ==
LOC: ER 17:35
DX: M62.830 Muscle spasm of back (principal)
CPT/HCPCS: 96372; 99283; J2360

== ENCOUNTER 2018-06-30 12:31 | Emergency (ER) | payer SELFPAY ==
[~2018-06-30 12:31] MED LIST changes: +META800T18 PO
[2018-06-30] MEDS ORDERED: CARB-94 PO (12:42)
[2018-06-30] MEDS ORDERED: GABA-549 PO (12:42)
[2018-06-30] MEDS ORDERED: TRAM-420 PO (12:42)
[2018-06-30] MEDS ORDERED: DIAZEPAM 5 MG TAB PO ONE (12:45)
[2018-06-30] MEDS ORDERED: DIA5 PO (12:49)
[2018-06-30] MEDS ORDERED: DOXY-252 PO (12:49)
--- NOTE | 2018-06-30 12:51 | ER Report ---
History and Physical Time Seen By MD: 12:45 Hx. of Stated Complaint: patient states having pain all over her body, with tremors. patient has been being seen by nuerologist, supposed to have follow-up on monday. Patient states the medications that she was given aren't work. HPI/ROS CHIEF COMPLAINT: Generalized malaise HISTORY OF PRESENT ILLNESS: This 53-year-old female returns to the emergency department today with a complaint of myalgia general malaise she's been seen by numerous physicians in the emergency room several times she is currently being followed by a neurologist A diagnosis could be some type of cervical dyskinesia unclear etiology also is a question about Lyme's disease. Patient denies having a Lyme's titer drawn. Patient is also being followed by primary care. Patient states she has just general malaise and fatigue throughout her entire body she takes tramadol she was seen here and received oxycodone as she is requesting more narcotic pain medicine I explained her that that isn't appropriate to give chronic pain medications to someone in this circumstance however I will start her on a muscle relaxer Valium. Patient has no additional complaints at this time patient denies illicit or alleviating factors are unknown no clear etiology or diagnosis. REVIEW OF SYSTEMS: Respiratory: No cough, no dyspnea. Cardiovascular: No chest pain, no palpitations. Gastrointestinal: No vomiting, no abdominal pain. Musculoskeletal: Overall body aches Remainder of the 14 system rev: Yes Allergies: Coded Allergies: No Known Drug Allergies (Unverified , 06/30/18) Home Meds Active Scripts Metaxalone (SKELAXIN) 800 Mg Tablet, 800 MG PO TID, #20 TAB 0 Refills Prov:JOSE MULLEN LOCOMOTIVE ENGINEER-BC 05/26/18 Reported Medications Tramadol Hcl (TRAMADOL HCL) 50 Mg Tablet, 50 MG PO Q4H, TAB 06/30/18 Carbidopa/Levodopa (CARBIDOPA-LEVODOPA 25-100 TAB) 1 Each Tablet, 1 EACH PO QID 06/30/18 Gabapentin (GABAPENTIN) 300 Mg Capsule, 100 MG PO TID, CAPSULE 06/30/18 Reviewed Nurses Notes: Yes Old Medical Records Reviewed: Yes Constitutional Vital Sign - Last 24 Hours 06/30/18 12:38 Temp 97.9 Pulse 76 Resp 16 B/P (MAP) 133/81 Pulse Ox 98 O2 Delivery Room Air Physical Exam General Appearance: The patient is alert, has no immediate need for airway protection and no current signs of toxicity. [ ] Eyes: Pupils equal and round no injection. Respiratory: Chest is non tender, lungs are clear to auscultation. Cardiac: regular rate and rhythm [ ] Gastrointestinal: Abdomen is soft and non tender, no masses, bowel sounds normal. Musculoskeletal: Pain with joint movement all over Neck is supple with full range of motion however she does describe some cervical tenderness which is chronic in nature Extremities have full range of motion and are non tender. Skin: No rashes or lesions. [ ] DIFFERENTIAL DIAGNOSIS: After history and physical exam differential diagnosis was considered for cervical radiculopathy Lyme's disease myositis myalgias Medical Decision Making ED Course/Re-evaluation ED Course Patient returns emergency Department today with the same complaint of general malaise and myalgias overall body joint and a pain this could be Lyme's disease however titer has yet to be dry we'll start her empirically on doxycycline addition to start her on by mouth Valium to help with the anxiety and the muscle relaxation punishes neural follow-up in the next 3 days I will not refill her narcotic prescriptions as that is not appropriate patient be discharge diagnosis muscle aches and myalgia Decision to Disposition Date: June 30, 2018 Decision to Disposition Time: 12:48 Depart Departure Latest Vital Signs Vital Signs Date Time Temp Pulse Resp B/P (MAP) Pulse Ox O2 Delivery O2 Flow Rate FiO2 06/30/18 12:38 97.9 76 16 133/81 98 Room Air Impression: Primary Impression: Muscle spasm Additional Impression: Myalgia Condition: Improved Disposition: HOME OR SELF-CARE Referrals: ALEKSANDRA HALL MD 5 Days New Scripts Doxycycline Monohydrate (DOXYCYCLINE MONOHYDRATE) 100 Mg Capsule 100 MG PO BID for 10 Days, #20 CAPSULE Prov: SAVI POTTS MD 06/30/18 Diazepam (VALIUM) 5 Mg Tablet 5 MG PO 2-3XD for Muscle Relaxant, #15 TAB Prov: SAVI POTTS MD 06/30/18 Patient Instructions: Polymyositis (DC) Problem Qualifiers SAVI POTTS MD June 30, 2018 12:51
[2018-06-30 13:00] VITALS: BP 114/82
== END 2018-06-30 13:15 | disposition home or self-care (01) ==
LOC: ER 12:34
DX: M62.838 Other muscle spasm (principal); M79.10 Myalgia, unspecified site
CPT/HCPCS: 99283

== ENCOUNTER 2018-07-02 20:37 | Emergency (ER) | payer OTHER ==
[~2018-07-02 20:37] MED LIST changes: -traMADol 50 MG TAB PO ONE
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
[2018-07-02 20:45] VITALS: BP 116/84
[2018-07-02] MEDS ORDERED: CYCLOBENZAPRINE HCL 10 MG TH PO ONE (21:00)
[2018-07-02] MEDS ORDERED: traMADol 50 MG TAB TH 2 TAB/BOTTLE PO ONE (21:00)
[2018-07-02] MEDS ORDERED: CYCL10TA29 PO (21:01)
[2018-07-02] MEDS ORDERED: TRAM-420 PO (21:01)
== END 2018-07-02 21:04 | disposition home or self-care (01) ==
LOC: ER 21:00
DX: S16.1XXA Strain of muscle, fascia and tendon at neck level, initial encounter (principal); S39.012A Strain of muscle, fascia and tendon of lower back, initial encounter
CPT/HCPCS: 99283; C9399

== ENCOUNTER → 2018-07-02 | Outpatient (CLI) | payer OTHER ==
[~2018-07-02] MED LIST changes: +CARB-94 PO; +DIA5 PO; +DOXY-252 PO; +GABA-549 PO; +TRAM-420 PO
== END ==
LOC: AMB 13:21
PROVIDERS: ATTEND Nurse Practitioner
DX: M54.2 Cervicalgia (principal); R51 Headache; V43.62XA Car passenger injured in collision with other type car in traffic accident, initial encounter; Y92.414 Local residential or business street as the place of occurrence of the external cause
CPT/HCPCS: A0425; A0427

== ENCOUNTER → 2018-07-02 | Emergency (ER) | payer OTHER ==
[~2018-07-02] MED LIST changes: +traMADol 50 MG TAB PO ONE
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
== END ==
LOC: ER 13:40
DX: S16.1XXA Strain of muscle, fascia and tendon at neck level, initial encounter (principal); S06.0X9A Concussion with loss of consciousness of unspecified duration, initial encounter; V49.9XXA Car occupant (driver) (passenger) injured in unspecified traffic accident, initial encounter
CPT/HCPCS: 70450; 72125; 99284